=== PATIENT | female | born 1990 | race Caucasian/White ===

== ENCOUNTER 2016-11-28 22:20 | Emergency (ER) | payer OTHER ==
[2016-11-28 22:26] VITALS: TEMP 98.2; O2SAT 96
[2016-11-28] MEDS ORDERED: TDAP ADULT 0.5 ML INJ (BOOSTRIX) IM ONE (22:30)
--- NOTE | 2016-11-28 23:24 | EDPHY ---
H & P Stated Complaint: laceration to the left hand Time Seen by Provider: 11/28/16 22:49 HPI/ROS: HPI The patient presents with left hand laceration which she sustained approximately 6 hours ago, cutting her hand on a glass jar. She began to bleed immediately. She then used a butterfly Band-Aid. Her hand began continued to bleed so she came into the emergency room. She does not have any numbness or tingling or difficulty with range of movement. REVIEW OF SYSTEMS Constitutional: No fever, no chills. Eyes: No discharge. ENT: No sore throat. Cardiovascular: No chest pain, no palpitations. Respiratory: No cough, no shortness of breath. Gastrointestinal: No abdominal pain, no vomiting. Genitourinary: No hematuria. Musculoskeletal: No back pain. Skin: No rashes. Neurological: No headache. PMHx: Healthy PHYSICAL General Appearance: Alert, no distress Eyes: Pupils equal and round no pallor or injection ENT, Mouth: Mucous membranes moist Respiratory: Breathing comfortably Neurological: A&O, moves all extremities Skin: Warm and dry, no rashes Musculoskeletal: Left thenar eminence with 3 cm C-shaped laceration which is superficial with no exposed tendon injury, full range of motion of thumb, sensation is intact to light touch, brisk capillary refill. Extremities: symmetrical, full range of motion Psychiatric: Patient is oriented X 3, there is no agitation Source: Patient Exam Limitations: No limitations - Personal History LMP (Females 10-55): 8-14 Days Ago Current Tetanus/Diphtheria Vaccine: Unsure Current Tetanus Diphtheria and Acellular Pertussis (TDAP): Unsure - Medical/Surgical History Hx Asthma: No Hx Chronic Respiratory Disease: No Hx Diabetes: No Hx Cardiac Disease: No Hx Renal Disease: No Hx Cirrhosis: No Hx Alcoholism: No Hx HIV/AIDS: No Hx Splenectomy or Spleen Trauma: No Other PMH: hypothyroidism - Social History Smoking Status: Never smoked Constitutional: Initial Vital Signs Temperature (C) 36.8 C 11/28/16 22:22 Heart Rate 65 11/28/16 22:22 Respiratory Rate 18 11/28/16 22:22 Blood Pressure 112/67 11/28/16 22:22 O2 Sat (%) 96 11/28/16 22:22 O2 Delivery Mode Room Air Allergies/Adverse Reactions: No Known Allergies Allergy (Unverified 11/28/16 22:26) Home Medications: Medication Instructions Recorded Levothyroxine 50 mcg DAILY 11/28/16 Medical Decision Making Procedures: LACERATION REPAIR Procedure: Laceration repair. Verbal consent was obtained from the patient. The linear 3 cm laceration on the left thenar eminence was anesthetized using bupivacaine with epinephrine. The wound was scrubbed, draped and explored to its base with a gloved finger. There were no deep structures involved. No tendon injury was identified. . The wound was repaired with 4.0 nylon sutures, simple interrupted. The wound repair was simple. The procedure was performed by myself. Differential Diagnosis: This is a 26-year-old healthy female who presents with non dominant left thumb laceration which he sustained about 6 hours ago, cutting her thumb on a glass jar. She does not appear to have any neurologic deficits, vascularity intact, no tendon injury identified. Plan for laceration repair with sutures given location of injury. She should return in 7 days to have the sutures removed. We have discussed wound care and return precautions. - Data Points Medications Given: Discontinued Medications Diphtheria/Tetanus/Acell Pertussis (Boostrix) 0.5 ml IM .ONCE ONE Stop: 11/28/16 22:31 Last Admin: 11/28/16 22:35 Dose: 0.5 ml Departure - Departure Disposition: Home, Routine, Self-Care Clinical Impression: Thumb laceration Qualifiers: Encounter type: initial encounter Damage to nail status: without damage Foreign body presence: without foreign body Laterality: left Qualified Code(s): S61.012A - Laceration without foreign body of left thumb without damage to nail , initial encounter Condition: Good Instructions: Laceration (ED), Care For Your Stitches (ED) Additional Instructions: Please return in 7 days to have your sutures removed. You should return sooner if you have any redness, swelling, drainage from the wound. Referrals: Sepideh Day MD [Primary Care Provider] - As per Instructions
[2016-11-28 23:49] VITALS: BP 115/72; PULSE 69; RESP 16
== END 2016-11-28 23:49 | disposition home or self-care (01) ==
PROC: 0HQGXZZ Repair Left Hand Skin, External Approach (ICD-10-PCS; principal; 2016-11-28)
DX: S61.012A Laceration without foreign body of left thumb without damage to nail, initial encounter (principal); Z23 Encounter for immunization; W25.XXXA Contact with sharp glass, initial encounter